=== PATIENT | male | born 1960 | race Caucasian/White ===

== ENCOUNTER 2016-10-31 16:42 | Emergency (ER) | payer OTHER ==
[~2016-10-31] VITALS: Ht 185.4 cm; Wt 127.0 kg
[2016-10-31 16:54] VITALS: BP 127/88
== END 2016-10-31 17:56 | disposition home or self-care (01) ==
LOC: ER 16:49
DX: F41.9 Anxiety disorder, unspecified (principal); Z76.0 Encounter for issue of repeat prescription; F32.9 Major depressive disorder, single episode, unspecified; I10 Essential (primary) hypertension; K42.0 Umbilical hernia with obstruction, without gangrene
CPT/HCPCS: 99284; A4606; Z7610